=== PATIENT | male | born 1955 | race Caucasian/White ===

== ENCOUNTER 2019-03-19 20:08 | Emergency (ER) | payer OTHER ==
[2019-03-19 20:31] VITALS: BP 109/69; PULSE 96; TEMP 98.1; BMI 27.4
== END 2019-03-19 21:38 | disposition left against medical advice (07) ==
LOC: JER 20:08
DX: F10.120 Alcohol abuse with intoxication, uncomplicated (principal)
CPT/HCPCS: 99281-25